=== PATIENT | male | born 2000 | race Caucasian/White ===

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

== ENCOUNTER 2023-08-05 17:57 | Emergency (ER) | payer OTHER ==
[2023-08-05 18:04] VITALS: BP 117/62; PULSE 90; RESP 16; TEMP 98; BMI 16.4
[2023-08-05] MEDS ORDERED: SODIUM CHLORIDE 0.9% 500 ML INFUS.BAG IV ONE (18:32)
[2023-08-05] MEDS ORDERED: ONDANSETRON 4 MG/2 ML VIAL IVPUSH ONE (18:33)
[2023-08-05] MEDS ORDERED: ONDANSETRON 4 MG/2 ML VIAL ONE (19:18)
[2023-08-05 19:21] LABS: BASO % 0.5 % (0-2.0); EOS % 0.2 % (0-4.5); HEMATOCRIT 42.6 % (35.4-49); HEMOGLOBIN 14.7 GM/dL (11.7-16.9); LYMPH % 8.5 % (8-40); MCHC 34.6 g/dl (32.0-35.9); MEAN CELL VOLUME 92.5 fl (80-96); MEAN PLT VOLUME 7.6 fl (7.5-11.1); MONO % 13.4 % (3.8-10.2); NEUT % 77.4 % (42.8-82.8); PLATELET COUNT 211 10^3/uL (134-434); RBC 4.61 M/mm3 (4.00-5.60); RDW 13.6 % (11.9-15.9); WHITE BLOOD COUNT 7.8 K/mm3 (4.0-10.0)
[2023-08-05 19:39] LABS: POTASSIUM 3.4 mmol/L (3.5-5.1)
[2023-08-05 19:42] LABS: ALBUMIN 4.1 g/dl (3.4-5.0); BLOOD UREA NITROGEN 17.2 mg/dL (7-18)
[2023-08-05 19:44] LABS: CREATININE 0.9 mg/dL (0.55-1.3)
[2023-08-05 19:46] LABS: TOT PROT 7.1 g/dl (6.4-8.2)
[2023-08-05 19:47] LABS: BILIRUBIN,TOTAL 2.1 mg/dL (0.2-1)
[2023-08-05 22:23] LABS: BILIRUBIN,DIRECT 0.4 mg/dL (0.0-0.2)
== END 2023-08-05 21:12 | disposition home or self-care (01) ==
LOC: JER 17:57
PROC: 3E033GC Introduction of Other Therapeutic Substance into Peripheral Vein, Percutaneous Approach (ICD-10-PCS; principal; 2023-08-05)
DX: R50.9 Fever, unspecified (principal); R11.2 Nausea with vomiting, unspecified; R19.7 Diarrhea, unspecified; Z20.822 Contact with and (suspected) exposure to COVID-19
CPT/HCPCS: 0241U-QW; 36415; 80053; 82248; 83690; 85025; 99284-25